=== PATIENT | male | born 1945 | race Caucasian/White ===

== ENCOUNTER 2017-01-31 06:56 | Day surgery (SDC) | payer MEDICARE, BC ==
[~2017-01-31 06:56] MED LIST: Lactated Ringers 1,000 ML IV SCH
[2017-01-31] MEDS ORDERED: fentaNYL 100 MCG/2 ML SDV ONE (08:22)
[2017-01-31] MEDS ORDERED: Propofol 200 MG/20 ML SDV ONE (08:22)
[2017-01-31 10:30] VITALS: BP 73/50
--- NOTE | 2017-01-31 11:40 | OR ---
PREOPERATIVE DIAGNOSIS: Screening colonoscopy. POSTOPERATIVE DIAGNOSIS: Colonic polyps x2 removed. PROCEDURE PROPOSED: Total flexible colonoscopy. PROCEDURE DONE: Total flexible colonoscopy with polypectomy x2. INDICATION: This is a 71-year-old gentleman who comes in for his first colonoscopic exam. He denies any symptomatology, and he has a negative family history for colon cancer. TECHNIQUE: The patient was brought to the endoscopy suite, placed in left lateral decubitus position. He was sedated with propofol per [facility]. The flexible video colonoscope was then passed transanally and under visualization advanced to the cecum. In the cecal area, he was found have a small polyp removed by cold snare technique and retrieved with suction. The transverse and descending colon were unremarkable. In the sigmoid colon at about 50 cm, there was another small polyp, again removed by this time hot snare technique and retrieved with suction. Both polyps were submitted for pathologic examination. The remainder of the exam was normal as the scope was then withdrawn. He tolerated the procedure well. IMPRESSION: Colonic polyps x2 removed. PLAN: He will be sent a letter with pathology report. I felt he should consider a 5-year followup exam to rule out any new polyps. SCM: 01/31/2017 09:41:54 MODL: 01/31/2017 11:36:01 /[id number]
--- NOTE | 2017-02-24 08:22 | LETTER ---
02/21/2017 RE: DELFINO MCGEE : 1945 Dear Delfino: The polyps removed from your colon were benign polyps. 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 I feel because of this finding that you should have your colon evaluated again in 5 years' time to make sure you are not forming any new polyps. If you have any further questions regarding this, feel free to call. Respectfully,
== END 2017-01-31 10:45 | disposition home or self-care (01) ==
LOC: VM.SDS 06:56
PROVIDERS: ATTEND Surgery
DX: Z12.11 Encounter for screening for malignant neoplasm of colon (principal); D12.0 Benign neoplasm of cecum; D12.5 Benign neoplasm of sigmoid colon; I10 Essential (primary) hypertension; E11.42 Type 2 diabetes mellitus with diabetic polyneuropathy; Z79.84 Long term (current) use of oral hypoglycemic drugs; I25.10 Atherosclerotic heart disease of native coronary artery without angina pectoris; E66.9 Obesity, unspecified; E78.5 Hyperlipidemia, unspecified; E04.1 Nontoxic single thyroid nodule; E03.9 Hypothyroidism, unspecified; I50.9 Heart failure, unspecified; D35.2 Benign neoplasm of pituitary gland; M06.00 Rheumatoid arthritis without rheumatoid factor, unspecified site; I25.2 Old myocardial infarction; Z79.899 Other long term (current) drug therapy; Z79.82 Long term (current) use of aspirin; Z79.01 Long term (current) use of anticoagulants; Z88.0 Allergy status to penicillin; Z88.1 Allergy status to other antibiotic agents
CPT/HCPCS: 00810; 45380; 45385; 82962; 88305; J2704; J3010; J7120

== ENCOUNTER 2018-05-31 11:23 | Emergency (ER) | payer MEDICARE, BC ==
[2018-05-31] MEDS ORDERED: Sodium Chloride 0.9% 10 ML Syringe FLUSH PRN (11:47)
[2018-05-31 12:27] LABS: CHLORIDE,CL 97 mmol/L (98-107); SODIUM,NA 134 mmol/L (136-145)
[2018-05-31 12:30] LABS: ANION GAP 14.3 mmol/L (10-20)
[2018-05-31] MEDS: Take Home: Ciprofloxacin 500 MG Tab, 2 Tab Pack PO ONE (14:18)
[2018-05-31] MEDS: Take Home: metroNIDAZOLE 500 MG Tab, 4 Tab Pack PO ONE (14:18)
[2018-05-31 14:27] VITALS: BP 128/76
--- NOTE | 2018-06-01 02:33 | EDM.PDOC ---
ED HPI GENERAL MEDICAL PROBLEM - General Chief Complaint: General Stated Complaint: RIGHT SIDE PAIN Time Seen by Provider: 05/31/18 11:23 Source of Information: Reports: Patient History Limitations: Reports: No Limitations - History of Present Illness INITIAL COMMENTS - FREE TEXT/NARRATIVE: Pt. states that he has been experiencing R lateral abdominal pain that has been present for several days. He states that he noticed it when he got out of bed on . No nausea.vomiting, or diarrhea. No blood in stools. Denies any fever or chills. No weakness. He states that his appetite has been normal. He denies any bloody stools. Denies any chest pain or shortness of breath. No recent hospitalizations. He states that the discomfort with worse when bearing down. Location: Reports: Abdomen Quality: Reports: Sharp, Throbbing Associated Symptoms: Denies: Fever/Chills, Nausea/Vomiting, Shortness of Breath , Weakness - Related Data Allergies Allergy/AdvReac Type Severity Reaction Status Date / Time clindamycin Allergy Weakness Verified 05/31/18 11:37 penicillin Allergy Rash Verified 05/31/18 11:37 Home Meds: Home Meds Aspirin [Halfprin] 81 mg PO DAILY 06/14/15 [History] Cyanocobalamin (Vitamin B-12) [B-12] 1,000 mcg PO DAILY 06/14/15 [History] Glimepiride [Amaryl] 4 mg PO BID 06/14/15 [History] Hydrocortisone [Cortef] 10 mg PO DAILY 06/14/15 [History] Levothyroxine 150 mcg PO ACBRK 06/14/15 [History] Lisinopril [Prinivil] 40 mg PO DAILY 06/14/15 [History] Metoprolol Tartrate [Lopressor] 75 mg PO BID 06/14/15 [History] Nitroglycerin [Nitrostat] 0.4 mg SL Q5M PRN 06/14/15 [History] Ticagrelor [Brilinta] 90 mg PO BID 06/14/15 [History] atorvaSTATin [Lipitor] 10 mg PO DAILY 06/14/15 [History] metFORMIN [Glucophage] 1,000 mg PO BIDMEALS 06/14/15 [History] Furosemide [Lasix] 10 mg PO DAILY 01/08/17 [History] sulfaSALAzine [Azulfidine] 500 mg PO BID 07/23/17 [History] Past Medical History HEENT History: Reports: None Cardiovascular History: Reports: CAD, High Cholesterol, Hypertension, NM, Stents Respiratory History: Reports: None Gastrointestinal History: Reports: None Genitourinary History: Reports: None Musculoskeletal History: Reports: Arthritis, RA Neurological History: Reports: None Psychiatric History: Reports: None Endocrine/Metabolic History: Reports: Diabetes, Type II, Hypothyroidism, Obesity /BMI 30+, Other (See Below) Other Endocrine/Metabolic History: goiter. pituitary disease Hematologic History: Reports: None Immunologic History: Reports: None Oncologic (Cancer) History: Reports: None, Other (See Below) Other Oncologic History: pituitary adenoma Dermatologic History: Reports: None - Past Surgical History Head Surgeries/Procedures: Reports: None GI Surgical History: Reports: Cholecystectomy, Hernia Repair/Other Endocrine Surgical History: Reports: Pituitary Tumor Resection Social & Family History - Tobacco Use Smoking Status *Q: Unknown Ever Smoked ED ROS GENERAL - Review of Systems Review Of Systems: See Below Constitutional: Reports: No Symptoms HEENT: Reports: No Symptoms Respiratory: Reports: No Symptoms Cardiovascular: Reports: No Symptoms Endocrine: Reports: No Symptoms GI/Abdominal: Reports: Abdominal Pain : Reports: No Symptoms Musculoskeletal: Reports: No Symptoms Skin: Reports: No Symptoms Neurological: Reports: No Symptoms Psychiatric: Reports: No Symptoms Hematologic/Lymphatic: Reports: No Symptoms Immunologic: Reports: No Symptoms ED EXAM, GENERAL - Physical Exam Exam: See Below Exam Limited By: No Limitations General Appearance: Alert, WD/WN, Mild Distress (Pt. is morbidly obese, and generally uncomfortable. States the abdominal discomfort is intermittent in nature.) Nose: Normal Inspection, Normal Mucosa, No Blood Throat/Mouth: Normal Inspection, Normal Lips, Normal Teeth, Normal Gums, Normal Oropharynx, Normal Voice, No Airway Compromise Head: Atraumatic, Normocephalic Neck: Normal Inspection, Supple, Non-Tender Respiratory/Chest: No Respiratory Distress, Lungs Clear, No Accessory Muscle Use , Chest Non-Tender, Decreased Breath Sounds Cardiovascular: Normal Peripheral Pulses, Regular Rate, Rhythm, No Edema, No Gallop, No JVD, No Murmur, No Rub Peripheral Pulses: 3+: Radial (R) GI/Abdominal: No Distention, Tender (intermittent R lateral abdominal pain. Abd. obese. Mild increase in discomfort when palpated. No rebound tenderness. BS are normoactive.). No: Rebound Rectal (Males) Exam: Deferred Neurological: Alert, Oriented, CN II-XII Intact, Normal Cognition Course - Vital Signs Last Recorded V/S: Last Vital Signs Temp 36.4 C 05/31/18 14:00 Pulse 74 05/31/18 14:00 Resp 16 05/31/18 14:00 BP 128/76 05/31/18 14:00 Pulse Ox 97 05/31/18 14:00 - Orders/Labs/Meds Orders: Active Orders 24 hr Category Date Time Status Abdomen Pelvis wo Cont [CT] Stat Exams 05/31/18 12:29 Taken UA W/MICROSCOPIC [URIN] Stat Lab 05/31/18 11:48 Ordered Peripheral IV Insertion Adult [OM.PC] Routine Oth 05/31/18 11:48 Ordered Labs: Laboratory Tests 05/31/18 05/31/18 05/31/18 Range/Units 11:48 12:00 12:00 WBC 10.1 H (4.0-10.0) x10^3/uL RBC 5.19 (4.5-6.0) x10^6/uL Hgb 14.7 (14.0-18.0) g/dL Hct 43.5 (40.0-52.0) % MCV 83.8 (78.0-93.0) fL MCH 28.3 (26.0-32.0) pg MCHC 33.8 (32.0-36.0) g/dL RDW Coeff of Karin 14.3 (10.0-15.0) % Plt Count 142 (130-400) x10^3/uL Neut % (Auto) 77.0 (50.0-80.0) % Lymph % (Auto) 8.6 L (25.0-50.0) % Winston % (Auto) 12.9 H (2.0-11.0) % Eos % (Auto) 1.2 (0.0-4.0) % Baso % (Auto) 0.3 (0.2-1.2) % PT 11.0 (9.6-11.4) SEC INR 1.1 L (2.0-3.5) Sodium (136-145) mmol/L Potassium (3.5-5.1) mmol/L Chloride (98-107) mmol/L Carbon Dioxide (21-32) mmol/L Anion Gap (10-20) mmol/L BUN (7-18) mg/dL Creatinine (0.70-1.30) mg/dL Est Cr Clr Drug Dosing Estimated GFR (MDRD) Glucose (74-106) mg/dL Calcium (8.5-10.1) mg/dL Corrected Calcium (8.5-10.1) mg/dL Phosphorus (2.6-4.7) mg/dL Magnesium (1.8-2.4) mg/dL Total Bilirubin (0.2-1.0) mg/dL AST (15-37) U/L ALT (16-63) U/L Alkaline Phosphatase (46-116) U/L C-Reactive Protein (<=0.9) mg/dL Total Protein (6.4-8.2) g/dL Albumin (3.4-5.0) g/dL Globulin Albumin/Globulin Ratio Urine Color Yellow (YELLOW) Urine Appearance Clear (CLEAR) Urine pH 5.5 (5.0-8.0) Ur Specific [place] 1.015 Urine Protein 30 H (NEGATIVE) mg/dL Urine Glucose (UA) Negative (NEGATIVE) mg/dL Urine Ketones Negative (NEGATIVE) mg/dL Urine Occult Blood Trace-intact H (NEGATIVE) Urine Nitrite Negative (NEGATIVE) Urine Bilirubin Negative (NEGATIVE) Urine Urobilinogen 0.2 (0.2) EU/dL Ur Leukocyte Esterase Trace H (NEGATIVE) Urine RBC 0-5 (NOT SEEN) /HPF Urine WBC 0-5 (NOT SEEN) /HPF Ur Squamous Epith Cells Few H (NEGATIVE) /HPF Urine Bacteria Rare (NEGATIVE) /HPF Urine Mucus Not seen (NEGATIVE) /LPF 05/31/18 Range/Units 12:00 WBC (4.0-10.0) x10^3/uL RBC (4.5-6.0) x10^6/uL Hgb (14.0-18.0) g/dL Hct (40.0-52.0) % MCV (78.0-93.0) fL MCH (26.0-32.0) pg MCHC (32.0-36.0) g/dL RDW Coeff of Karin (10.0-15.0) % Plt Count (130-400) x10^3/uL Neut % (Auto) (50.0-80.0) % Lymph % (Auto) (25.0-50.0) % Winston % (Auto) (2.0-11.0) % Eos % (Auto) (0.0-4.0) % Baso % (Auto) (0.2-1.2) % PT (9.6-11.4) SEC INR (2.0-3.5) Sodium 134 L (136-145) mmol/L Potassium 4.3 (3.5-5.1) mmol/L Chloride 97 L (98-107) mmol/L Carbon Dioxide 27 (21-32) mmol/L Anion Gap 14.3 (10-20) mmol/L BUN 12 (7-18) mg/dL Creatinine 1.0 (0.70-1.30) mg/dL Est Cr Clr Drug Dosing TNP Estimated GFR (MDRD) > 60 Glucose 167 H (74-106) mg/dL Calcium 9.7 (8.5-10.1) mg/dL Corrected Calcium 10.02 (8.5-10.1) mg/dL Phosphorus 3.4 (2.6-4.7) mg/dL Magnesium 1.8 (1.8-2.4) mg/dL Total Bilirubin 1.3 H (0.2-1.0) mg/dL AST 40 H (15-37) U/L ALT 51 (16-63) U/L Alkaline Phosphatase 79 (46-116) U/L C-Reactive Protein 5.9 H (<=0.9) mg/dL Total Protein 8.1 (6.4-8.2) g/dL Albumin 3.6 (3.4-5.0) g/dL Globulin 4.5 Albumin/Globulin Ratio 0.80 Urine Color (YELLOW) Urine Appearance (CLEAR) Urine pH (5.0-8.0) Ur Specific [place] Urine Protein (NEGATIVE) mg/dL Urine Glucose (UA) (NEGATIVE) mg/dL Urine Ketones (NEGATIVE) mg/dL Urine Occult Blood (NEGATIVE) Urine Nitrite (NEGATIVE) Urine Bilirubin (NEGATIVE) Urine Urobilinogen (0.2) EU/dL Ur Leukocyte Esterase (NEGATIVE) Urine RBC (NOT SEEN) /HPF Urine WBC (NOT SEEN) /HPF Ur Squamous Epith Cells (NEGATIVE) /HPF Urine Bacteria (NEGATIVE) /HPF Urine Mucus (NEGATIVE) /LPF Meds: Medications Discontinued Medications Generic Name Dose Route Start Last Admin Trade Name Reed PRN Reason Stop Dose Admin Ciprofloxacin 1 packet 05/31/18 14:03 05/31/18 14:18 Take Home: Ciprofloxacin 500 Mg, 2 Tab Pack PO 05/31/18 14:04 1 packet ONETIME ONE Administration Metronidazole 1 packet 05/31/18 14:04 05/31/18 14:18 Take Home: Metronidazole 500 Mg, 4 Tab Pack PO 05/31/18 14:05 1 packet ONETIME ONE Administration Sodium Chloride 10 ml 05/31/18 11:47 Saline Flush FLUSH ASDIRECTED PRN Keep Vein Open - Radiology Interpretation Free Text/Narrative:: CT abd./pelvis was obtained without contrast (small hematuria). There was some evidence of small area of haziness in the area of the colon at the hepatic flexure consistent with colitis. No stone noted. Discussed CT with contrast of Abd. and pelvis but radiologist felt strong on the diagnosis, and stated further imaging would be low yield at this time. Advised repeat imaging with contrast if symptoms worsen. Departure - Departure Time of Disposition: 14:27 Disposition: Home, Self-Care 01 Clinical Impression: Colitis - Discharge Information Instructions: Colitis, Ciprofloxacin tablets, Metronidazole tablets or capsules , Probiotics Referrals: Osmel Burger MD [Primary Care Provider] - Forms: ED Department Discharge Additional Instructions: Cipro 500mg twice daily for 10 days Metronidazole 500mg three times daily for 10 days Follow-up in clinic in 10-14 days to ensures resolution of symptoms Return to ER if worsening discomfort, weakness, lightheadedness, fever, or chills. - My Orders Last 24 Hours: My Active Orders 05/31/18 11:48 UA W/MICROSCOPIC [URIN] Stat Peripheral IV Insertion Adult [OM.PC] Routine 05/31/18 12:29 Abdomen Pelvis wo Cont [CT] Stat - Assessment/Plan Last 24 Hours: My Active Orders 05/31/18 11:48 UA W/MICROSCOPIC [URIN] Stat Peripheral IV Insertion Adult [OM.PC] Routine 05/31/18 12:29 Abdomen Pelvis wo Cont [CT] Stat Plan: Cipro 500mg twice daily for 10 days Metronidazole 500mg three times daily for 10 days Follow-up in clinic in 10-14 days to ensures resolution of symptoms Return to ER if worsening discomfort, weakness, lightheadedness, fever, or chills.
== END 2018-05-31 14:27 | disposition home or self-care (01) ==
LOC: VM.ED 11:23
DX: K52.9 Noninfective gastroenteritis and colitis, unspecified (principal); E11.9 Type 2 diabetes mellitus without complications; E03.9 Hypothyroidism, unspecified; E66.9 Obesity, unspecified; I25.2 Old myocardial infarction; Z79.82 Long term (current) use of aspirin; Z88.1 Allergy status to other antibiotic agents; Z88.0 Allergy status to penicillin
CPT/HCPCS: 36415; 74176; 80053; 81001; 83735; 84100; 85025; 85610; 86140; 99284; 99284-GF; A9270-GY